=== PATIENT | male | born 1990 | race Caucasian/White ===

== ENCOUNTER 2019-04-02 09:14 | Outpatient (CLI) | payer OTHER ==
--- NOTE | 2019-04-02 09:46 | Diagnostic Imaging Report ---
PATIENT MR#: [id number] PATIENT PATIENT NAME: KERI QUINN DATE OF : 1990 REFERRING PHYSICIAN: Luis Camarena EXAM DATE: 04/02/2019 ACCESSION NUMBER: [id number] EXAM DESCRIPTION: ANKLE 3 VIEWS OR MORE CLINICAL HISTORY: RT ANKLE, PAIN AND SWELLING IN RT ANKLE, PT STATES HE SLIPPED AND FELL ABOUT 1-2 WE EKS AGO . COMPARISON: No study for comparison is available at the time of interpretation. TECHNIQUE: DX right ankle, 3 views Osseous structures: The osseous structures are normal with no evidence of fracture or dislocation. Th ere is no osseous lesion or periosteal reaction. Joint spaces: The bones are well aligned. No articular surface abnormality is noted. Soft tissues: There is normal appearance of the soft tissues with no radiopaque foreign body seen. IMPRESSION: Normal right ankle radiographs, without fracture. Read by: Dr. David Pappas Transcribed by: David Pappas Transcribed Date: 04/02/2019 9:45:21 AM Electronically signed by: Dr. David Pappas Date signed: 04/02/2019 9:46:12 AM
== END 2019-04-02 09:25 ==
LOC: RAD 09:14
PROVIDERS: ATTEND Family Medicine
DX: M25.571 Pain in right ankle and joints of right foot (principal)
CPT/HCPCS: 73610